=== PATIENT | female | born 1980 | race Caucasian/White ===

== ENCOUNTER 2020-07-28 09:05 | Emergency (ER) | payer MEDICAID ==
[~2020-07-28] VITALS: Ht 165.1 cm; Wt 66.7 kg
[2020-07-28 09:49] VITALS: Ht 165.1 cm; Wt 66.7 kg
[2020-07-28 12:48] VITALS: BP 156/98
== END 2020-07-28 12:48 | disposition home or self-care (01) ==
LOC: ED 09:05
DX: U07.1 COVID-19 (principal); R51.9 Headache, unspecified
CPT/HCPCS: U0003